=== PATIENT | female | born 1990 | race Caucasian/White ===

== ENCOUNTER 2020-01-05 12:15 | Emergency (ER) | payer MEDICAID ==
[~2020-01-05] VITALS: Ht 177.8 cm; Wt 104.5 kg
[~2020-01-05 12:15] MED LIST: CLEOCIN HCL300 MG PO; TORADOL10 MG PO
[2020-01-05 12:25] VITALS: Ht 177.8 cm; Wt 104.5 kg
[2020-01-05] MEDS ORDERED: FLAGYL500 MG PO (13:50)
[2020-01-05] MEDS ORDERED: AZITHROMYCIN500 MG PO (13:50)
[2020-01-05] MEDS ORDERED: VOLTAREN75 MG PO (13:50)
[2020-01-05 14:13] VITALS: BP 110/48
== END 2020-01-05 14:14 | disposition home or self-care (01) ==
LOC: D.ER 12:15
DX: K04.7 Periapical abscess without sinus (principal); K08.89 Other specified disorders of teeth and supporting structures; Z72.0 Tobacco use

== ENCOUNTER 2020-01-25 11:12 | Emergency (ER) | payer MEDICAID ==
[~2020-01-25] VITALS: Ht 177.8 cm; Wt 104.5 kg
[~2020-01-25 11:12] MED LIST changes: +AZITHROMYCIN500 MG PO; +FLAGYL500 MG PO; +VOLTAREN75 MG PO
[2020-01-25 11:16] VITALS: Ht 177.8 cm; Wt 104.5 kg
[2020-01-25] MEDS ORDERED: NAPROSYN500 MG PO (12:08)
[2020-01-25] MEDS ORDERED: FLAGYL500 MG PO (12:08)
[2020-01-25] MEDS ORDERED: CLEOCIN HCL300 MG PO (12:08)
[2020-01-25 12:38] VITALS: BP 125/63
== END 2020-01-25 12:39 | disposition home or self-care (01) ==
LOC: D.ER 11:12
DX: K04.7 Periapical abscess without sinus (principal); K08.89 Other specified disorders of teeth and supporting structures; Z72.0 Tobacco use

== ENCOUNTER 2020-02-19 14:01 | Emergency (ER) | payer MEDICAID ==
[~2020-02-19 14:01] MED LIST changes: +NAPROSYN500 MG PO
[2020-02-19 14:06] VITALS: Ht 177.8 cm
[2020-02-19] MEDS ORDERED: CLEOCIN HCL300 MG PO (16:05)
[2020-02-19 17:01] VITALS: BP 121/68
== END 2020-02-19 17:01 | disposition home or self-care (01) ==
LOC: D.ER 14:01
DX: K08.89 Other specified disorders of teeth and supporting structures (principal)

== ENCOUNTER 2020-03-20 11:17 | Emergency (ER) | payer OTHER ==
[~2020-03-20] VITALS: Ht 177.8 cm; Wt 104.5 kg
[2020-03-20 11:23] VITALS: Ht 177.8 cm; Wt 104.5 kg
[2020-03-20] MEDS ORDERED: ADVIL200 MG (11:26)
[2020-03-20] MEDS ORDERED: VOLTAREN75 MG PO (12:29)
[2020-03-20] MEDS ORDERED: AZITHROMYCIN500 MG PO (12:29)
[2020-03-20 12:46] VITALS: BP 139/89
== END 2020-03-20 12:47 | disposition home or self-care (01) ==
LOC: D.ER 11:17
DX: K04.7 Periapical abscess without sinus (principal); K08.89 Other specified disorders of teeth and supporting structures; K21.9 Gastro-esophageal reflux disease without esophagitis; Z72.0 Tobacco use